=== PATIENT | male | born 1985 | race Caucasian/White ===

== ENCOUNTER 2018-08-25 09:41 | Emergency (ER) | payer OTHER ==
[~2018-08-25] VITALS: Ht 182.9 cm; Wt 98.9 kg
--- NOTE | 2018-08-25 10:43 | RAD ---
5 view lumbar spine dated 08/25/2018. No comparison available. Clinical indication: Pain after injury. FINDINGS: Five-view lumbar spine show normal sagittal alignment. Vertebral body heights are maintained. Posterior elements intact. No evidence of fracture. Mild endplate hypertrophic changes throughout. There is a limbus vertebrae at L4. Mild hypertrophic change of the lower lumbar apophyseal joints. No pars defects on the oblique views. IMPRESSION: 1. No acute radiographic abnormality. 2. Mild lower lumbar spondylosis. Electronically signed by: Jermaine Vogt MD (08/25/2018 10:40 AM) [facility]
[2018-08-25] MEDS ORDERED: HYDROcodone/APAP 5/325MG 1 TAB TABLET PO ONE (11:00)
[2018-08-25] MEDS ORDERED: HYDR-971 PO (11:05)
[2018-08-25] MEDS ORDERED: PRED50TA PO (11:05)
[2018-08-25 11:10] VITALS: BP 152/90
[2018-08-25] MEDS ORDERED: predniSONE 20 MG TABLET PO ONE (11:15)
[2018-08-25] MEDS ORDERED: predniSONE 10 MG TABLET PO ONE ×2 (11:15)
--- NOTE | 2018-08-25 16:28 | PHYS DOC ---
Past History Past Medical History: No Pertinent History Past Surgical History: Other Alcohol Use: Occasionally Drug Use: None Adult General Chief Complaint Chief Complaint: BACK PAIN OR INJURY HPI HPI 32-year-old male presents with 2 day history of low back pain. The patient was doing cross fit with his unit 2 days ago. He did feel that his low back was tightening up so he stopped. Throughout the day his pain increased and he gets a deep cramping sensation in the low back with any sudden movements. Patient comes the ED today because he was unable to get out of bed without excruciating pain. Lifting his legs up or turning his torso causes pain. Once he is up and used to can manage the pain. He is able to walk. Patient has a history of low back injury from football and parachuting. He tried NSAIDs with no relief. He denies any other complaints. He denies numbness or tingling in his perineum. He has no loss of bowel or bladder. Denies fever or chills. Review of Systems Review of Systems Constitutional: Denies fever or chills [] Eyes: Denies change in visual acuity, redness, or eye pain [] HENT: Denies nasal congestion or sore throat [] Respiratory: Denies cough or shortness of breath [] Cardiovascular: No additional information not addressed in HPI [] GI: Denies abdominal pain, nausea, vomiting, bloody stools or diarrhea [] : Denies dysuria or hematuria [] Musculoskeletal: Low back pain[] Integument: Denies rash or skin lesions [] Neurologic: Denies headache, focal weakness or sensory changes [] Endocrine: Denies polyuria or polydipsia [] All other systems were reviewed and found to be within normal limits, except as documented in this note. Current Medications Current Medications Current Medications Medications (Trade) Dose Ordered Sig/Zaida Start Time Stop Time Status Last Admin Dose Admin Acetaminophen/ Hydrocodone Bitart (Lortab 5/325) 1 tab 1X ONCE 08/25/18 11:00 08/25/18 11:03 DC 08/25/18 11:04 1 TAB Prednisone (Prednisone) 10 mg 1X ONCE 08/25/18 11:15 08/25/18 11:15 DC 08/25/18 11:09 10 MG Allergies Allergies Allergies Coded Allergies Type Severity Reaction Last Updated Verified No Known Drug Allergies 08/25/18 No Physical Exam Physical Exam Constitutional: Well developed, well nourished, no acute distress, non-toxic appearance. [] HENT: Normocephalic, atraumatic, bilateral external ears normal, oropharynx moist, no oral exudates, nose normal. [] Eyes: PERRLA, EOMI, conjunctiva normal, no discharge. [] Neck: Normal range of motion, no tenderness, supple, no stridor. [] Cardiovascular:Heart rate regular rhythm, no murmur [] Lungs & Thorax: Bilateral breath sounds clear to auscultation [] Abdomen: Bowel sounds normal, soft, no tenderness, no masses, no pulsatile masses. [] Skin: Warm, dry, no erythema, no rash. [] Back: No tenderness with palpation, no CVA tenderness. Pain was standing and straight leg raise.[] Extremities: No tenderness, no cyanosis, no clubbing, ROM intact, no edema. [] Neurologic: Alert and oriented X 3, normal motor function, normal sensory function, no focal deficits noted. [] Psychologic: Affect normal, judgement normal, mood normal. [] Current Patient Data Vital Signs Vital Signs Date Time Temp Pulse Resp B/P (MAP) Pulse Ox O2 Delivery O2 Flow Rate FiO2 08/25/18 11:10 90 18 152/90 (110) 98 Room Air 08/25/18 09:45 98.2 Lab Results Laboratory Tests Test 08/25/18 10:40 Group A Streptococcus Rapid Negative (NEGATIVE) EKG EKG [] Radiology/Procedures Radiology/Procedures [] Impressions: 5 view lumbar spine dated 08/25/2018. No comparison available. Clinical indication: Pain after injury. FINDINGS: Five-view lumbar spine show normal sagittal alignment. Vertebral body heights are maintained. Posterior elements intact. No evidence of fracture. Mild endplate hypertrophic changes throughout. There is a limbus vertebrae at L4. Mild hypertrophic change of the lower lumbar apophyseal joints. No pars defects on the oblique views. IMPRESSION: 1. No acute radiographic abnormality. 2. Mild lower lumbar spondylosis. Electronically signed by: Jermaine Vogt MD (08/25/2018 10:40 AM) [id number] DICTATED AND SIGNED BY: JERMAINE VOGT MD DATE: 08/25/18 1039 CC: SAYRA ERWIN DO; JER TRINH MD Course & Med Decision Making Course & Med Decision Making Pertinent Labs and Imaging studies reviewed. (See chart for details) The patient's x-ray is negative for acute findings. I believe he either has a lumbar strain or possibly has irritated one of his lumbar disks. I will give him prednisone for inflamation and a short course of Ursa 5/325 for pain. He is stable for discharge at this time. If his condition worsens he will seek further treatment and physical therapy. [] Dragon Disclaimer Dragon Disclaimer This electronic medical record was generated, in whole or in part, using a voice recognition dictation system. Departure Departure: Impression: Primary Impression: Low back pain Disposition: HOME, SELF-CARE Condition: STABLE Patient Instructions: Back Pain, Adult Scripts Prednisone (PREDNISONE) 50 Mg Tablet 1 TAB PO DAILY for low back pain for 5 Days, #5 TAB start tomorrow Prov: SAYRA ERWIN DO 08/25/18 Hydrocodone Bit/Acetaminophen (NORCO 5-325 TABLET) 1 Each Tablet 1 TAB PO PRN Q6HRS PRN for PAIN, #10 TAB 0 Refills Prov: SAYRA ERWIN DO 08/25/18 SAYRA ERWIN DO Aug 25, 2018 16:28
== END 2018-08-25 11:12 | disposition home or self-care (01) ==
LOC: ER 09:41
DX: M54.5 Low back pain (principal); G89.11 Acute pain due to trauma; M47.896 Other spondylosis, lumbar region; X50.9XXA Other and unspecified overexertion or strenuous movements or postures, initial encounter; Y93.89 Activity, other specified; Y92.89 Other specified places as the place of occurrence of the external cause; Y99.8 Other external cause status
CPT/HCPCS: 72110; 87070; 87880; 99285; J7512